=== PATIENT | female | born 1970 | race Two or more races ===

== ENCOUNTER → 2017-07-18 | Outpatient (CLI) | payer BC ==
--- NOTE | 2017-07-18 14:46 | RAD ---
APPROVED REPORT Patient Location : OUT-PATIENT Indications varicose veins, swelling, htn Deep System Deep Venous Thrombosis present : No Greater Saphenous Veins (GSV) Significant venous relux noted in the RIGHT GSV at the following levels : Mid Thigh Significant venous relux noted in the LEFT GSV at the following levels : Mid Thigh Lesser Saphenous Veins (LSV) Right Thigh extension noted : No Leftt Thigh extension noted : No Right Giacomini Vein : Present : No Reflux : No Leftt Giacomini Vein : Present : No Reflux : No Accessory Veins Right Anterior Accessory Vein : Present : No Reflux : No Leftt Anterior Accessory Vein : Present : No Reflux : No Right Posterior Accessory Vein : Present : No Reflux : No Left Posterior Accessory Vein : Present : No Reflux : No Findings Limited grayscale images of the saphenofemoral junctions do not reveal any evidence of thrombus bilat erally. The right great saphenous vein measures approximately 8 mm in greatest diameter and has a reflux time of 3 seconds. The left great saphenous vein similarly measures approximately 8 mm in diameter and a has a reflux time of 2.9 seconds. The bilateral lesser saphenous veins do not show any evidence of reflux. The right lesser saphenous v ein measures 2.9 mm. The left lesser saphenous vein measures approximately 2.7 mm On the right side perforators are noted in the mid calf at approximately 12 cm up and 5 cm back, 8 cm up and 5 cm back. On the left there are Perforators noted at approximately 12 cm up and 5 cm back a nd multiple superficial varicosities are noted. Both the right and left-sided perforators do not demo nstrate any clear evidence of reflux. Critical Notification Critical Value: No <Conclusion> 1. Positive for reflux in the bilateral greater saphenous veins
--- NOTE | 2017-07-18 15:17 | RAD ---
APPROVED REPORT Bilateral Lower Extremity Venous Study for DVT Patient Location: OUT-PATIENT Indications Varicose Veins swelling, htn Findings Stacy scale images of the common femoral vein and profunda vein in the proximal superficial femoral ve in bilaterally do not reveal any evidence of thrombus. Color Doppler and spectral images demonstrate normal flow and patterns. The mid and distal superficial femoral vein bilaterally was not well visualized due to body habitus b ut overall grossly demonstrates compressibility without any clear evidence of thrombus. The bilateral popliteal veins are well visualized and demonstrated normal compressibility. The bilateral below-kne e veins demonstrate spontaneous flow and no clear evidence of thrombus. Incidental note is made of bilateral groin lymph nodes the longest on the right measuring 2.3 x 0.7 x 1.8 cm and on the left side measuring 3.2 x 0.8 x 1.5 cm. Critical Notification Critical Value: No <Conclusion> 1. Negative for DVT in the bilateral lower extremity veins. 2. Incidental note of bilateral groin lymph nodes as described above.
== END | disposition home or self-care (01) ==
LOC: US 07:59
PROVIDERS: ATTEND Internal Medicine Cardiovascular Disease
DX: I83.93 Asymptomatic varicose veins of bilateral lower extremities (principal); K21.9 Gastro-esophageal reflux disease without esophagitis
CPT/HCPCS: 93970